=== PATIENT | female | born 1995 | race Caucasian/White ===

== ENCOUNTER → 2018-08-14 | Outpatient (CLI) | payer OTHER ==
[2018-08-14 14:18] LABS: ANION GAP 11 MEQ/L (8-16); BLOOD UREA NITROGEN 10 MG/DL (7-18); CALCIUM LEVEL 8.9 MG/DL (8.5-10.1); CARBON DIOXIDE LEVEL 25 MEQ/L (21-32); CHLORIDE LEVEL 106 MEQ/L (98-107); CREATININE FOR GFR 0.84 MG/DL (0.55-1.30); GLOMERULAR FILTRATION RATE > 60.0 (>60); GLUCOSE, FASTING 91 MG/DL (70-100); POTASSIUM SERUM 3.8 MEQ/L (3.5-5.1); SODIUM LEVEL 142 MEQ/L (136-145)
== END ==
LOC: M SMT 09:09
DX: N13.30 Unspecified hydronephrosis (principal)
CPT/HCPCS: 80048

== ENCOUNTER → 2018-08-14 | Outpatient (REF) | payer OTHER ==
[2018-08-14 14:26] LABS: APPEARANCE, URINE CLOUDY (CLEAR); BACTERIA, URINE AUTO 1+ (NEGATIVE); BILIRUBIN, URINE AUTO NEGATIVE (NEGATIVE); BLOOD, URINE BLOOD 1+ (NEGATIVE); CALCIUM OXALATE CRYSTALS LARGE; COLOR, URINE YELLOW (YELLOW); GLUCOSE, URINE (UA) AUTO NEGATIVE (NEGATIVE); KETONE, URINE AUTO NEGATIVE (NEGATIVE); LEUKOCYTE ESTERASE, URINE AUTO NEGATIVE (NEGATIVE); MUCUS, URINE SMALL (NEGATIVE); NITRITE, URINE AUTO NEGATIVE (NEGATIVE); PROTEIN, URINE AUTO NEGATIVE (NEGATIVE); RBC, URINE AUTO 7 /HPF (0-3); SPECIFIC GRAVITY URINE AUTO 1.023 (1.002-1.035); SQUAMOUS EPITHELIAL CELL UR AU 15 /HPF (0-6); UROBILINOGEN, URINE AUTO 0.2 mg/dL (0.0-2.0); WBC, URINE AUTO 4 /HPF (0-3)
== END ==
LOC: M LAB REF 13:49
DX: N13.30 Unspecified hydronephrosis (principal)

== ENCOUNTER → 2018-08-19 | Outpatient (CLI) | payer OTHER | LOC: M RAD 12:30 | DX: O23.02 Infections of kidney in pregnancy, second trimester (principal); N13.30 Unspecified hydronephrosis; Z3A.22 22 weeks gestation of pregnancy | CPT/HCPCS: 76775 ==

== ENCOUNTER → 2018-08-25 | Outpatient (REF) | payer OTHER ==
[2018-08-25 19:35] LABS: APPEARANCE, URINE CLEAR (CLEAR); BACTERIA, URINE AUTO NEGATIVE (NEGATIVE); BILIRUBIN, URINE AUTO NEGATIVE (NEGATIVE); BLOOD, URINE BLOOD NEGATIVE (NEGATIVE); COLOR, URINE AMBER (YELLOW); GLUCOSE, URINE (UA) AUTO NEGATIVE (NEGATIVE); KETONE, URINE AUTO NEGATIVE (NEGATIVE); LEUKOCYTE ESTERASE, URINE AUTO NEGATIVE (NEGATIVE); MUCUS, URINE SMALL (NEGATIVE); NITRITE, URINE AUTO POSITIVE (NEGATIVE); PROTEIN, URINE AUTO NEGATIVE (NEGATIVE); RBC, URINE AUTO 0 /HPF (0-3); SPECIFIC GRAVITY URINE AUTO 1.018 (1.002-1.035); SQUAMOUS EPITHELIAL CELL UR AU 1 /HPF (0-6); WBC, URINE AUTO 1 /HPF (0-3)
== END ==
LOC: M SMT 17:12
DX: R10.9 Unspecified abdominal pain (principal)

== ENCOUNTER → 2021-02-28 | Outpatient (REF) | payer OTHER ==
[2021-02-28 18:18] LABS: APPEARANCE, URINE CLEAR (CLEAR); BACTERIA, URINE AUTO NEGATIVE (NEGATIVE); BILIRUBIN, URINE AUTO NEGATIVE (NEGATIVE); BLOOD, URINE BLOOD NEGATIVE (NEGATIVE); COLOR, URINE YELLOW (YELLOW); GLUCOSE, URINE (UA) AUTO NEGATIVE (NEGATIVE); KETONE, URINE AUTO NEGATIVE (NEGATIVE); LEUKOCYTE ESTERASE, URINE AUTO NEGATIVE (NEGATIVE); MUCUS, URINE SMALL (NEGATIVE); NITRITE, URINE AUTO NEGATIVE (NEGATIVE); PROTEIN, URINE AUTO NEGATIVE (NEGATIVE); RBC, URINE AUTO 1 /HPF (0-3); SPECIFIC GRAVITY URINE AUTO 1.027 (1.002-1.035); SQUAMOUS EPITHELIAL CELL UR AU 1 /HPF (0-6); UROBILINOGEN, URINE AUTO 0.2 mg/dL (0.0-2.0); WBC, URINE AUTO 1 /HPF (0-3)
== END ==
LOC: M SMT 16:43
PROVIDERS: ATTEND Nurse Practitioner Family
DX: N12 Tubulo-interstitial nephritis, not specified as acute or chronic (principal)

== ENCOUNTER → 2021-08-18 | Outpatient (CLI) | payer OTHER ==
[2021-08-18 15:21] LABS: FREE T4 0.77 NG/DL (0.76-1.46); THYROID STIMULATING HORMONE 2.12 uIU/ML (0.358-3.740)
== END ==
LOC: M LAB 14:23
PROVIDERS: ATTEND Otolaryngology
DX: E06.0 Acute thyroiditis (principal)

== ENCOUNTER → 2021-09-07 | Outpatient (CLI) | payer OTHER ==
[2021-09-07 10:54] LABS: FREE T4 0.84 NG/DL (0.76-1.46); GLUCOSE, FASTING 113 MG/DL (70-100)
[2021-09-07 10:55] LABS: THYROGLOBULIN ANTIBODY < 15.0 U/ML (<60.0); THYROID PEROXIDASE ANTIBODY 34.9 U/ML (<60.0); TOTAL T3 92.7 NG/DL (60.0-181.0)
== END ==
LOC: M LAB 09:36
PROVIDERS: ATTEND Otolaryngology
DX: E06.0 Acute thyroiditis (principal); K21.9 Gastro-esophageal reflux disease without esophagitis

== ENCOUNTER 2024-03-05 12:31 | Day surgery (SDC) | payer BC, OTHER ==
[~2024-03-05] VITALS: Ht 162.6 cm; Wt 73.2 kg
[~2024-03-05 12:31] MED LIST: CLON-412 PO; ETON68IM SC; FLUO20CA22 PO; HYDR50TA70 PO; LAMO25TA4 PO; OMEP40CA5 PO; VENL-37 PO; dexAMETHasone 20MG/5ML VIAL IV ONE
[2024-03-05] MEDS ORDERED: LIDOCAINE 1% SDV 5ML VIAL SC PRN (13:10)
[2024-03-05] MEDS: LR 1,000 ML IV SCH (13:52)
[2024-03-05] MEDS ORDERED: propofoL 200 MG/20 ML VIAL As Ordered ONE (14:42)
[2024-03-05] MEDS ORDERED: ONDANSETRON 4MG 2ML VIAL As Ordered ONE (14:42)
[2024-03-05] MEDS ORDERED: LIDOCAINE 2% 100MG/5ML SDV (FOR ANES.) As Ordered ONE (14:42)
[2024-03-05] MEDS ORDERED: ACETAMINOPHEN 1000MG 100ML IV BAG As Ordered ONE (14:42)
[2024-03-05] MEDS ORDERED: MIDAZOLAM INJ 2MG/2ML VIAL As Ordered ONE (14:43)
[2024-03-05] MEDS ORDERED: ROCURONIUM BROMIDE 50MG/5ML VIAL As Ordered ONE (14:43)
[2024-03-05] MEDS ORDERED: fentaNYL 100 MCG/2 ML INJECTION As Ordered ONE (14:43)
[2024-03-05] MEDS ORDERED: SUGAMMADEX SODIUM 500 MG/5 ML VIAL (BRIDION) As Ordered ONE (14:53)
[2024-03-05] MEDS ORDERED: OXYMETAZOLINE 0.05% NASAL SPRAY (AFRIN) As Ordered ONE (15:45)
[2024-03-05] MEDS ORDERED: ONDANSETRON 4MG 2ML VIAL IV PRN (17:05)
[2024-03-05] MEDS ORDERED: LR 1,000 ML IV SCH (17:05)
[2024-03-05] MEDS ORDERED: HYDROMORPHONE HCL 0.5 MG/ 0.5 ML SYRINGE IV PRN (17:05)
[2024-03-05] MEDS ORDERED: fentaNYL 100 MCG/2 ML INJECTION IV PRN (17:05)
[2024-03-05] MEDS: oxyCODONE 5MG TAB PO PRN (17:38)
[2024-03-05 18:35] VITALS: BP 112/60; TEMP 97.1; O2SAT 100
== END 2024-03-05 18:40 | disposition home or self-care (01) ==
LOC: M SDC 12:31
PROVIDERS: ATTEND Otolaryngology
DX: J35.3 Hypertrophy of tonsils with hypertrophy of adenoids (principal); F17.210 Nicotine dependence, cigarettes, uncomplicated; Z79.899 Other long term (current) drug therapy
CPT/HCPCS: 42821; 81025; 88302; J0131; J1100; J2250; J2405; J3010

== ENCOUNTER 2025-07-15 10:17 | Emergency (ER) | payer BC ==
[~2025-07-15] VITALS: Ht 162.6 cm; Wt 64.4 kg
[~2025-07-15 10:17] MED LIST changes: +FLUO-365 PO; -FLUO20CA22 PO; +LAMO-18 PO; -LAMO25TA4 PO; -dexAMETHasone 20MG/5ML VIAL IV ONE
[2025-07-15] MEDS ORDERED: CITA10TA7 (11:18)
[2025-07-15] MEDS ORDERED: AMPH1CAP14 (11:18)
[2025-07-15 11:34] LABS: PLATELET COUNT, AUTOMATED 245 10^3/uL (150-450)
[2025-07-15 11:55] LABS: AMPHETAMINES LEVEL URINE NEGATIVE (NEGATIVE); METHADONE URINE NEGATIVE (NEGATIVE); OPIATES URINE NEGATIVE (NEGATIVE); PHENCYCLIDINE URINE NEGATIVE (NEGATIVE)
[2025-07-15 11:56] LABS: BARBITURATES URINE NEGATIVE (NEGATIVE); BENZODIAZEPINES URINE NEGATIVE (NEGATIVE); COCAINE METABOLITE URINE NEGATIVE (NEGATIVE)
[2025-07-15 11:58] LABS: CANNABINOIDS URINE POSITIVE (NEGATIVE)
[2025-07-15 12:02] LABS: ALT/SGPT 19 U/L (7.0-40); AST/SGOT 16 U/L (<34); CALCIUM LEVEL 8.9 MG/DL (8.5-10.1); CARBON DIOXIDE LEVEL 25 MMOL/L (20-31); CHLORIDE LEVEL 108 MMOL/L (98-107); CREATININE FOR GFR 0.60 MG/DL (0.55-1.30); GLOMERULAR FILTRATION RATE > 90.0 (>60); POTASSIUM SERUM 3.6 MMOL/L (3.5-5.1); SALICYLATE LEVEL < 3.0 MG/DL (<30); SODIUM LEVEL 143 MMOL/L (136-145)
[2025-07-15 12:04] LABS: ETHYL ALCOHOL (ETHANOL) < 0.003 % (0.000-0.010)
[2025-07-15 12:11] LABS: HCG, SERUM QUALITATIVE NEGATIVE (NEGATIVE)
[2025-07-15 15:33] VITALS: BP 119/70; TEMP 97.8; O2SAT 99
== END 2025-07-15 15:37 | disposition home or self-care (01) ==
LOC: M ED 10:17
DX: F39 Unspecified mood [affective] disorder (principal); F17.200 Nicotine dependence, unspecified, uncomplicated; F12.10 Cannabis abuse, uncomplicated; Z79.899 Other long term (current) drug therapy

== ENCOUNTER 2025-08-20 22:42 | Inpatient (IN) | payer BC ==
[~2025-08-20] VITALS: Ht 162.6 cm; Wt 64.0 kg
[~2025-08-20 22:42] MED LIST changes: +AMPH1CAP14; +CITA10TA7
[2025-08-20 23:38] LABS: PLATELET COUNT, AUTOMATED 191 10^3/uL (150-450)
[2025-08-20 23:58] LABS: AMPHETAMINES LEVEL URINE NEGATIVE (NEGATIVE); BARBITURATES URINE NEGATIVE (NEGATIVE); BENZODIAZEPINES URINE NEGATIVE (NEGATIVE); COCAINE METABOLITE URINE NEGATIVE (NEGATIVE); METHADONE URINE NEGATIVE (NEGATIVE); OPIATES URINE NEGATIVE (NEGATIVE); PHENCYCLIDINE URINE NEGATIVE (NEGATIVE)
[2025-08-20 23:59] LABS: CANNABINOIDS URINE POSITIVE (NEGATIVE)
[2025-08-21 00:32] LABS: ETHYL ALCOHOL (ETHANOL) < 0.003 % (0.000-0.010)
[2025-08-21 00:33] LABS: SALICYLATE LEVEL < 3.0 MG/DL (<30)
[2025-08-21 00:34] LABS: ALT/SGPT 15 U/L (7.0-40); AST/SGOT 14 U/L (<34); CALCIUM LEVEL 8.9 MG/DL (8.5-10.1); CARBON DIOXIDE LEVEL 28 MMOL/L (20-31); CHLORIDE LEVEL 107 MMOL/L (98-107); CREATININE FOR GFR 0.74 MG/DL (0.55-1.30); GLOMERULAR FILTRATION RATE > 90.0 (>60); POTASSIUM SERUM 3.6 MMOL/L (3.5-5.1); SODIUM LEVEL 144 MMOL/L (136-145)
[2025-08-21 00:38] LABS: HCG, SERUM QUALITATIVE NEGATIVE (NEGATIVE)
[2025-08-21] MEDS ORDERED: MAALOX 30 ML SUSP *UDC PO PRN (02:05)
[2025-08-21] MEDS ORDERED: IBUPROFEN 400 MG TAB PO PRN (02:05)
[2025-08-21] MEDS ORDERED: MOM 30 ML SUSPENSION UDC PO PRN (02:05)
[2025-08-21 06:26] VITALS: BP 90/60; TEMP 96.9; O2SAT 96
[2025-08-21] MEDS: NICOTINE 14 MG/24 HR TRANSDERMAL TD SCH (10:49)
[2025-08-21] MEDS: lamoTRIgine 25 MG TAB PO SCH (10:49)
[2025-08-21] MEDS ORDERED: HOME MED LIST COMPLETE! XX SCH (15:15)
[2025-08-21 15:37] VITALS: BP 100/60; TEMP 98; O2SAT 99
[2025-08-22 06:16] VITALS: BP 93/55; TEMP 96.7; O2SAT 100
[2025-08-22] MEDS: SERTRALINE HCL 25 MG TABLET PO SCH (09:14)
[2025-08-22] MEDS: FLUCONAZOLE 50 MG TABLET PO ONE (15:21)
[2025-08-22 15:28] VITALS: BP 114/67; TEMP 98.5; O2SAT 99
[2025-08-22] MEDS: traZODone 50 MG TAB PO PRN (20:32)
[2025-08-23 06:24] VITALS: TEMP 97.4; O2SAT 100
[2025-08-23] MEDS: SERTRALINE HCL 50 MG TAB PO SCH (09:18)
[2025-08-23] MEDS: ACETAMINOPHEN 325 MG TAB PO PRN (09:18)
[2025-08-23 15:08] VITALS: BP 107/61; TEMP 97.8; O2SAT 99
[2025-08-24 06:37] VITALS: BP 105/56; TEMP 97.7; O2SAT 90
[2025-08-24] MEDS ORDERED: LAMI25TA PO (09:54)
[2025-08-24] MEDS ORDERED: SERT50TA29 PO (09:54)
== END 2025-08-24 12:03 | disposition home or self-care (01) | DRG 752 ==
LOC: M ED 22:42 → M ED INP 08-21 02:04 → M PSY 08-21 03:55
PROVIDERS: ADMIT Psychiatry & Neurology Neurology; ATTEND Psychiatry & Neurology Neurology
DX: F60.3 Borderline personality disorder (principal); R45.851 Suicidal ideations; F31.9 Bipolar disorder, unspecified; F90.9 Attention-deficit hyperactivity disorder, unspecified type; F12.90 Cannabis use, unspecified, uncomplicated; Z63.5 Disruption of family by separation and divorce; F17.200 Nicotine dependence, unspecified, uncomplicated; Z79.899 Other long term (current) drug therapy